=== PATIENT | female | born 1960 | race Caucasian/White ===

== ENCOUNTER 2023-10-15 10:45 | Outpatient (RCR) | payer BC, SELFPAY | END 2023-12-19 10:41 | disposition home or self-care (01) | PROVIDERS: PCP Family Medicine; Visit Provider Family Medicine | DX: M54.12 Radiculopathy, cervical region (principal); Z74.09 Other reduced mobility; M40.294 Other kyphosis, thoracic region; R29.898 Other symptoms and signs involving the musculoskeletal system; Z51.89 Encounter for other specified aftercare | CPT/HCPCS: 97110; 97140; 97161 ==

== ENCOUNTER 2024-11-24 06:29 | Day surgery (SDC) | payer MEDICARE, BC, SELFPAY ==
[2024-11-24] VITALS (17 sets, daily range): BP systolic 101–143; BP diastolic 53–100; PULSE 64–93; RESP 11–20; TEMP 36.1–36.9; O2SAT 95–98; BMI 37.1
[2024-11-24] MEDS: CELECOXIB 200 MG CAPSULE PO (07:15)
[2024-11-24] MEDS: OXYCODONE (CR) 10 MG TAB.ER.12H PO (07:15)
[2024-11-24] MEDS: ACETAMINOPHEN 500 MG TABLET 1000 MG PO (07:15)
[2024-11-24] MEDS: SODIUM CHLORIDE 0.9 % (FLUSH) 10 ML SYRINGE IVF (07:25)
[2024-11-24] MEDS: LACTATED RINGERS 1000 ML 1,000 ML 100 ML IV (07:30)
[2024-11-24] MEDS: fentaNYL 100 MCG/2 ML inj IVP (07:32)
[2024-11-24] MEDS: MIDAZOLAM HCL 1 MG/ML inj IVP (07:32)
--- NOTE | 2024-11-24 07:45 | P.NB_ITS ---
Nerve Block Nerve Block Time Seen by Provider: 07:15 Date Seen: 11/24/24 Type of block requested by surgeon for post-operative analgesia: adductor canal Side: left Time out performed: Yes Verification of patient name: Yes Verification of date of : Yes Site marking: site marked Name of person performing procedure: Ranjana Anand Assistants, if any: Manfred Panchal Continuous monitoring Was continuous monitoring of O2 sat, B/P, monitoring tech, recorded every 15 minutes?: Yes Procedure Checklist: sterile prep Ultrasound guided. Images saved: Yes Medications given in 5ml increments after negative aspiration: Ropivicaine %: 0.5 mL: 20 Needle gauge: 20 Patient tolerated procedure well: Yes Block Charges Block Charge (with Pro Fee): Sciatic Nerve Use of Ultrasound Machine for Block: Yes- US Guidance/pain block
--- NOTE | 2024-11-24 07:47 | P.NB_ITS ---
Nerve Block Nerve Block Time Seen by Provider: 07:15 Date Seen: 11/24/24 Type of block requested by surgeon for post-operative analgesia: geniculars Side: left Time out performed: Yes Verification of patient name: Yes Verification of date of : Yes Site marking: site marked Name of person performing procedure: Ranjana Anand Assistants, if any: Manfred Panchal Continuous monitoring Was continuous monitoring of O2 sat, B/P, clinical research monitor, recorded every 15 minutes?: Yes Procedure Checklist: sterile prep Ultrasound guided. Images saved: Yes Medications given in 5ml increments after negative aspiration: Ropivicaine %: 0.5 mL: 12 Needle gauge: 22 Patient tolerated procedure well: Yes Block Charges Block Charge (with Pro Fee): Genicular Nerve Block Use of Ultrasound Machine for Block: Yes- US Guidance/pain block
--- NOTE | 2024-11-24 07:48 | SUR.PREOP ---
TIME?OUT:?724, left knee PT/RN/MDA?VERIFICATION?OF?SURGICAL?SITE,?PROCEDURE,?AND?CONSENT OBTAINED?PRIOR?TO?INVASIVE?PROCEDURE.
--- NOTE | 2024-11-24 09:16 | CRLHL7_ITS ---
For Patients: As a result of the Cures Act, medical imaging exams and procedure reports are released immediately into your electronic medical record. You may view this report before your referring provider. If you have questions, please contact your health care provider. Indication: Postop TKA Technique: Two views of the left knee Comparison: Left knee radiographs 09/21/2024 Findings/impression : Postsurgical changes of left total knee arthroplasty present. The hardware is intact and without adjacent lucency. Anatomic alignment and no fracture, dislocation or suspicious bony lesion. Air-fluid levels are compatible with very recent postsurgical changes. There are no soft tissue radiopaque foreign bodies. Dictated by Dameon Shepard MD @ 11/24/2024 10:16:46 AM (Electronically Signed)
--- NOTE | 2024-11-24 09:17 | PM.ORPRC ---
Procedure Note Date of procedure: 11/24/24 Procedure: PREOPERATIVE DIAGNOSIS: Left knee osteoarthritis POSTOPERATIVE DIAGNOSIS: Left knee osteoarthritis NAME OF OPERATION: Left total knee arthroplasty SURGEON: Oli Villegas MD TICKET COUNTER: DOYLE Pina ANESTHESIA: Spinal ESTIMATED BLOOD LOSS: 0 mL COMPLICATIONS: None SPECIMENS: None DRAINS: None PREOPERATIVE ANTIBIOTICS: Ancef 2 grams, antibiotic impregnated cement IMPLANTS: 1. J&J Attune # 8 posterior stabilized femur 2. #6 revision CRS fixed-bearing tibia, 14 mm x 50 mm cemented stem 3. # 8 posterior stabilized, 5 mm fixed-bearing polyethylene 4. 41 patella INDICATIONS: The patient is a 64-year-old with a longstanding history of severe, unrelenting left knee pain secondary to end-stage (grade IV) left knee osteoarthritis. Despite appropriate nonoperative management, including activity modification, anti-inflammatories, onfk-alg-bcnnrrv pain medication, bracing, physical therapy, and injections they continue to have pain and disability. Operative intervention was offered. The risks, benefits and expected outcomes were discussed in detail. These included but were not limited to: Infection, bleeding, injury to blood vessel or nerve, venous thromboembolism. All questions were answered to their satisfaction. Use of an assistant facility manager was necessary throughout the case for patient positioning and safety, soft tissue retraction, and closure. PROCEDURE: Spinal anesthesia was administered. The patient was placed supine on the operating table. The assistant facility manager made sure the patient was positioned appropriately. The lower extremity was prepped and draped in the usual sterile fashion. The limb was exsanguinated with the Harry bandage. The pneumatic tourniquet was inflated to 300 mmHg. A standard anterior incision was made with the knee in flexion. Subcutaneous dissection was sharply taken through fascial layer #1. Full-thickness medial and lateral flaps were elevated. The assistant facility manager retracted the soft tissues and protected them throughout the case. A standard subvastus approach was made. The patella was subluxed. The infrapatellar fat pad was preserved. The menisci and cruciate ligaments were sharply d?brided. Marginal osteophytes were d?brided with the rongeur. The drill was used to penetrate the femoral canal. The canal was aspirated and irrigated with pulse lavage. The intramedullary femoral guide was placed for a 5-degree valgus cut, removing 10 mm off the distal femur. The saw was used to make the cut. Whitesides line and the trans epicondylar axis were marked. The femoral sizing guide was pinned onto the distal femur. Three degrees of external rotation nicely parallels the transepicondylar axis. Pins were placed for posterior referencing. The four-in-one cutting guide was pinned onto the distal femur. The anterior, posterior, and chamfer cuts were made. The assistant facility manager protected the collateral ligaments. The box cutting guide was pinned. The box cuts were made. The boxed trial was placed and was an excellent fit. Drill holes for the lugs were made. Attention was then turned to the proximal tibia. The extramedullary tibial guide was placed for a neutral varus/valgus cut with 5 degrees of posterior slope, removing 2 mm based off the medial tibial surface. The assistant facility manager protected the collateral ligaments and the neurovascular bundle. The saw was used to make the cut. Trial components were placed. The knee was nicely balanced in both flexion and extension. The trial components were removed. The tray was placed in appropriate rotation, parallel to our tibial cutting pins. It was pinned by the assistant facility manager and the drill x2 was used. The stemmed tibial trial was placed. The punch was used. The tray was removed. The punch was used again. Attention was then turned to the patella. [place] patellar thickness was 27.5 mm. The lobster claw resection guide was used with the 9.5 mm scarlett. The saw was used to make the cut. Drill holes were made by the assistant facility manager. The trial was placed and was an excellent fit. Cancellous surfaces were irrigated with pulse lavage and thoroughly dried by the assistant facility manager. We cemented the tibial component, then the femoral component. We impacted the 5 mm polyethylene onto the tibial tray. The knee was brought into full extension. We then cemented the patellar component. Excessive cement was removed. The cement was allowed to harden. The knee was taken through a range of motion and was found to be nicely balanced in both flexion and extension. The patella tracks centrally. The assistant facility manager did a three minute dilute Betadine solution soak. The assistant facility manager irrigated the wound with 3 liters of normal saline via pulse lavage. The assistant facility manager reapproximated the extensor mechanism with #1 Vicryl in an interrupted hwnopz-ii-ctoel fashion. The assistant facility manager then ran the extensor mechanism with a #1 PDO Stratafix. The assistant facility manager closed the subcutaneous tissues with a 3-0 Stratafix and the skin with a running 3-0 Stratafix in a subcuticular fashion. Glue was used to seal the skin. The assistant facility manager placed a dry dressing. Sponge and needle counts were correct x2. The patient tolerated the procedure well. There were no apparent complications. They were carefully transferred to the hospital bed and taken to the postanesthesia care unit in satisfactory condition. PLAN: The patient will be mobilized with physical therapy. Aspirin will be used for DVT prophylaxis. They will be discharged to home once medically appropriate.
--- NOTE | 2024-11-24 09:58 | P.ANES_ITS ---
Anesthesia Charges Start Date/Time Anesthesia Start Date: 11/24/24 Anesthesia Start Time: 07:44 Stop Date/Time Anesthesia Stop Date: 11/24/24 Anesthesia Stop Time: 09:55 Coding CPT Codes CPT Codes: ANESTH KNEE ARTHROPLASTY - 29522 ([id number]) P2 - PATIENT W/MILD SYST DISEASE, QZ - COPY CLERK SVC W/O HEALTH/SAFETY JOB TITLES BY
--- NOTE | 2024-11-24 09:58 | W.ANESCHARGE ---
Anesthesia Charges Start Date/Time Anesthesia Start Date: 11/24/24 Anesthesia Start Time: 07:44 Stop Date/Time Anesthesia Stop Date: 11/24/24 Anesthesia Stop Time: 09:55 Coding CPT Codes CPT Codes: ANESTH KNEE ARTHROPLASTY - 53065 ([id number]) P2 - PATIENT W/MILD SYST DISEASE, QZ - SFDC SOLUTION ARCHITECT SVC W/O BEARING MAKER BY
--- NOTE | 2024-11-24 10:28 | SUR.PHASEI ---
patient met discharge criteria per anesthesia
--- NOTE | 2024-11-24 11:01 | SUR.OPER ---
PATIENT QUESTIONS ANSWERED SATISFACTORILY PREOPERATIVELY.? PATIENT BROUGHT TO OR #2 PER CART AFTER ADMINISTRATION OF A BLOCK.? Patient positioned supine on OR #2 bed.? The perioperative?team supported arms bilaterally on arm boards.? Final approval of positioning by surgeon.?
--- NOTE | 2024-11-24 12:23 | SUR.PHASEII ---
pt taken to PT @ 12:15
== END 2024-11-24 13:35 | disposition home or self-care (01) ==
LOC: OR 06:30
PROVIDERS: PCP Family Medicine; Visit Provider Orthopaedic Surgery
PROC: (CPT 27447; principal; 2024-11-24 07:45)
DX: M17.12 Unilateral primary osteoarthritis, left knee (principal); G89.18 Other acute postprocedural pain; N95.1 Menopausal and female climacteric states; R73.03 Prediabetes
CPT/HCPCS: 27447; 01402; 64445; 64454; 73560; 76942; 97110; 97116; 97162; A9270; C1776; J1100; J2250; J2371; J2405; J2704; J2795; J3010; J7120

== ENCOUNTER 2025-01-07 10:45 | Outpatient (RCR) | payer MEDICARE, BC, SELFPAY ==
--- NOTE | 2024-11-16 11:58 | PT.OPEX ---
PT [place] Outpatient Eval PT [facility] Outpatient Eval Start: 11/16/24 09:46 Freq: Status: Active Protocol: Document 11/16/24 09:47 MRS (Rec: 11/16/24 11:54 MRS No Response) E-signed By Cathie White DPT Physical Therapy Outpatient Evaluation Insurance Information Recert Due Date 02/16/25 Insurance Name Blue Cross/Blue Shield Medical Diagnosis L TKA on 11/24/24 Treating Diagnosis Pain in Knee Left M 25.561 Stiffness in Knee Left M25.661 Impaired Mobility Z74.9 Imaging Report Information L knee XR= tricompartmental OA Referring MD Oli Villegas MD Subjective Preferred Name Kayla Subjective Initial subjective: Kayla will have L TKA on 11/24/24. Kayla plans to d/c to home after surgery, no hospital stay planned at this time. Aggravating factors: walking, biking, standing Alleviating factors: rest PMH: OA, allergies, multiple knee surgeries, Work status: retired Pt goals: To be able to walk and ride her bike without as much pain. Pain Comments 12/03 Date of Last Physician Visit 09/21/24 Date of Next Physician Visit 12/02/24 Date of Surgery (If applicable) 11/24/24 Current Work Status Retired Precautions Weight Bearing Status Weight Bear as Tolerated Therapy Limitations/Systems Review Not Limited Objective Range of Motion LE ROM (R/L):?? -Knee Flx:?133/128 -Knee Ext:?0/0 Strength LE ROM (R/L):? -Hip Flx:?/5; 12/28 -Hip Abd:?12/28; 12/28 -Knee Flx:?/; 12/28 -Knee Ext:?12/28; 12/28 - ANkle DF: 12/28; 12/28 Assessment Assessment/Impression Pt is pleasant and active 64- year-old female who presents with signs and symptoms consistent with left knee osteoarthritis and has scheduled L TKA on 11/24/24. Contributing factors include, but are not limited to; pain, decreased ROM, and impaired functional strength. Pt would benefit from skilled PT interventions to facilitate return to PLOF and improve mobility while decreasing pain so pt can return to her active lifestyle.?Kayla plans to have L TKA with SDS and d/c to home with her . Kayla will start OPPT on 11/26/24. Kayla will need a FWW for home use. ? Primary Functional Limitations pain, impaired functional strength, impaired functional mobility, endurance. Plan of Care Rehabilitation Potential Excellent Physical Therapy Goals 1. Within this session: Pt will verbalize understanding of pre-op/post-op safety, mobility and exercises with home program issued and pt returning for ongoing therapy after TKA replacement. LTG's to be met 8-12 weeks after surgery: 1. Pt will have knee AROM 0- 120 degrees for transfers, ADLs, and stairs independence. 2. Pt will amb 20 min with se cane or no device as indicated , safely and independently for community and household ambulation. 3. 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 4. Pt will ascend/descend 13 stairs with railing independently for community mobility. Coordination/Communication With Referral Source Treatment Plan/Direct Interventions Joint Mobilization,Manual Therapy,Neuromuscular Re-ed, Therapeutic Activities, Therapeutic Exercises Frequency/Duration 2-3x/week for 12 weeks after surgery Patient Will Be Discharged From Therapy Completion of LTG(s),Skills Plateau,Independent w/HEP, Independently Progressing Evaluation Billing Untimed Code Treatment Minutes 30 Complexity Low Certification Information Initial Certification Date 11/16/24 Ending Certification Date 02/16/25 Provider Signature Required Yes Provider Signature Shows Agreement With POC & Medical Necessity Physician NPI Number Write NPI# Here Physician Comment/Change : Physician Signature & Date Requested Please Sign/Date Here
--- NOTE | 2024-11-26 10:56 | PT.OPDNX ---
PT [place] Out[facility] Daily Note PT [facility] Out[facility] Daily Note Start: 11/16/24 09:46 Freq: Status: Active Protocol: Document 11/26/24 06:49 HLA (Rec: 11/26/24 10:55 HLA [id number]) E-signed By Rosa Hutton, PT, DPT PT OP Daily Progress Note Visit Information Note Type Daily Note,Re-Evaluation Visit Number 2 Insurance Information Recert Due Date 02/16/25 Insurance Name Blue Cross/Blue Shield Medical Diagnosis L TKA on 11/24/24 Treating Diagnosis Pain in Knee Left M 25.561 Stiffness in Knee Left M25.661 Impaired Mobility Z74.9 Imaging Report Information L knee XR= tricompartmental OA Referring MD Oli Villegas MD Subjective Preferred Name Kayla Subjective Taking oxycodone, tylenol for pain, oxy does make her dizzy. Leg feels swollen and sore. Walking routinely short bouts with walker in her home, did to stairs to get to PT and that hurt quite a bit. Did her exercises x 1 yesterday, not today. Pain Comments pain L knee 8/10 goes down to 6/10 after meds. Date of Last Physician Visit 09/21/24 Date of Next Physician Visit 12/02/24 Date of Surgery (If applicable) 11/24/24 Precautions Weight Bearing Status Weight Bear as Tolerated Home Exercise Home Exercise Comments Access Code: [email or web address] URL: [email or web address] Date: 11/16/2024 Prepared by: Cathie Six Exercises - Supine Single Leg Ankle Pumps - 3-5 x daily - 7 x weekly - 10 reps - edema management exercise type - Supine Quad Sets - 3 x daily - 7 x weekly - 2 sets - 10 reps - 5 seconds hold - strength exercise type - Supine Short Arc Quad - 3 x daily - 7 x weekly - 10 reps - 5 seconds hold - strength exercise type - Active Straight Leg Raise with Quad Set - 3 x daily - 7 x weekly - 10 reps - 2-3 seconds hold - strength exercise type - Supine Heel Slide - 3 x daily - 7 x weekly - 10 reps - range of motion exercise type - Supine Isometric Hamstring Set - 3 x daily - 7 x weekly - 10 reps - 5 seconds hold - strength exercise type - Seated Long Arc Quad - 3 x daily - 7 x weekly - 10 reps - 5 seconds hold - range of motion/strength exercise type - Seated Knee Flexion Stretch - 3 x daily - 7 x weekly - 10 reps - 5 seconds hold - range of motion/stretch exercise type - Seated Passive Knee Extension - 3 x daily - 7 x weekly - 1 reps - 5-15 minutes hold - range of motion/ stretch exercise type Patient Education - Safe Practices For Preventing Falls - Going Up and Down Stairs With Two Rails After Surgery - Walker WBAT - Ice Objective Other/Pertinent Objective 63 cm 7 cm prox to patella 54 cm mid patella 45 cm 7 cm distal to patella 8-95 AAROM with strap supine L knee Patient Instructed in Risks/Benefits Yes Therapeutic Exercise Therapeutic Exercise Minutes (minutes) 40 Therapeutic Exercise: To Restore Practiced all TKA ex, reviewed Functional Status x 2. Used strap for HS, SAQ, SLR, LAQ Access Code: [email or web address] Exercises - Supine Single Leg Ankle Pumps - 3-5 x daily - 7 x weekly - 10 reps - edema management exercise type - Supine Quad Sets - 3 x daily - 7 x weekly - 2 sets - 10 reps - 5 seconds hold - strength exercise type - Supine Short Arc Quad - 3 x daily - 7 x weekly - 10 reps - 5 seconds hold - strength exercise type - Active Straight Leg Raise with Quad Set - 3 x daily - 7 x weekly - 10 reps - 2-3 seconds hold - strength exercise type - Supine Heel Slide - 3 x daily - 7 x weekly - 10 reps - range of motion exercise type - Supine Isometric Hamstring Set - 3 x daily - 7 x weekly - 10 reps - 5 seconds hold - strength exercise type - Seated Long Arc Quad - 3 x daily - 7 x weekly - 10 reps - 5 seconds hold - range of motion/strength exercise type - Seated Knee Flexion Stretch - 3 x daily - 7 x weekly - 10 reps - 5 seconds hold - range of motion/stretch exercise type - Seated Passive Knee Extension - 3 x daily - 7 x weekly - 1 reps - 5-15 minutes hold - range of motion/ stretch exercise type Therapeutic Activity Therapeutic Activities Comments sit<>stand slow, mod ind car transfer min assist L LE sit<>supine lifts LE on off bed with without assist Manual Therapy Techniques Manual Therapy Techniques gentle AAROM of knee, tight/ swollen thigh to ankle, added tubigrip, instructed in elevating, ice and compression Gait & Stair Training Gait & Stair Training Comments gt with ww 200 feet x 2, worked on heel toe patterning, hip ext, posture, standing close to walker base. She amb with stiff L knee, circumducting today without cues. Gt program for home instructed. Treatment Minutes Untimed Code Treatment Minutes 10 Timed Code Treatment Minutes 40 Total Treatment Time 50 Billing Units Therapeutic Exercise Units 3 Re-Evaluation Units 1 Assessment/Impression Assessment/Impression ?64 year old female is s/p L TKA 11/24/24. Pt arrives amb with ww, antalgic L LE, stiff, circumducting gt. Improved gt quality with stretch, ROM and education. Pt performed TKA ex with assist of PT and strap , AAROM L knee 8-95 degrees with strap and overpressure at end of session. Pt is weak, painful L knee, impaired ROM and impaired amb post TKA. She will benefit from twice weekly sessions of PT for strengthening, ROM, advancing TKA protocol, goal to return to ind amb no device, community distances and leisure activities as well as painfree, safe ind ADLS. Primary Functional Limitations pain, impaired functional strength, impaired functional mobility, endurance. Plan of Care Physical Therapy Goals LTG's to be met 8-12 weeks after surgery: 1. Pt will have knee AROM 0- 120 degrees for transfers, ADLs, and stairs independence. 2. Pt will amb 20 min with se cane or no device as indicated , safely and independently for community and household ambulation. 3. 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 4. Pt will ascend/descend 13 stairs with railing independently for community mobility.
== END 2025-05-07 23:59 | disposition home or self-care (01) ==
PROVIDERS: PCP Family Medicine; Visit Provider Orthopaedic Surgery
DX: Z47.1 Aftercare following joint replacement surgery (principal); M17.12 Unilateral primary osteoarthritis, left knee; Z96.652 Presence of left artificial knee joint; Z51.89 Encounter for other specified aftercare
CPT/HCPCS: 97110; 97140; 97161; 97164; 97530